=== PATIENT | female | born 1985 | race Caucasian/White ===

== ENCOUNTER 2017-05-10 23:35 | Inpatient (IN) | payer OTHER ==
[~2017-05-10] VITALS: Ht 172.7 cm; Wt 106.1 kg
[2017-05-10 23:39] VITALS: BP 150/74
--- NOTE | 2017-05-10 23:43 | NUR ---
PT RETURNED TO LOBBY
--- NOTE | 2017-05-11 00:08 | NUR ---
32Y F BIB SELF C/O VAGINAL BLEEDING X 6 DAYS. PT STATES PAIN IS LEFT FLANK, RADIATING TO THE BACK. PT STATES SHE THINKS IT IS A KIDNEY INFECTION, BC SHE HAD SIMILIAR SYMPTOMS LAST TIME. PT PROVIDED URINE. PT ALSO C/O N/V/D, BUT NO SOB, CP AT THE MOMEN. PT AAOX4. BREATHING IS UNLABORED AND EVEN. PT AMBULATED TO ER BED 12 WITH STEADY GAIT.
--- NOTE | 2017-05-11 00:54 | NUR ---
Patient being evaluated by physician at bedside.
[2017-05-11] MEDS ORDERED: NACL 0.9% 1,000 ML IV ONE (01:00)
[2017-05-11] MEDS ORDERED: KETOROLAC 30 MG/ML VIAL IVP ONE (01:00)
[2017-05-11 01:12] LABS: BASOPHILS # (AUTO) 0.3 K/uL (0.00-0.22); BASOPHILS % (AUTO) 4.2 % (0.0-2.0); EOSINOPHILS % (AUTO) 0.1 % (0.0-4.0); HEMATOCRIT 32.5 % (36-48); HEMOGLOBIN 11.2 g/dL (12.0-16.0); LYMPHOCYTES % (AUTO) 15.2 % (20.5-51.1); MEAN CORPUSCULAR HEMOGLOBIN 31 pg (27-31); MEAN CORPUSCULAR HGB CONC 35 g/dL (33-37); MEAN CORPUSCULAR VOLUME 89 fL (80-94); MONOCYTES # (AUTO) 0.8 K/uL (0.8-1.0); MONOCYTES % (AUTO) 13.1 % (1.7-9.3); NEUTROPHILS # (AUTO) 4.4 K/uL (1.8-7.7); NEUTROPHILS % (AUTO) 67.4 % (42.2-75.2); PLATELET COUNT (AUTO) 235 K/uL (140-450); RED BLOOD CELL COUNT(AUTO) 3.65 MIL/uL (4.20-5.40); RED CELL DISTRIBUTION WIDTH 12.6 % (11.6-13.7); WHITE BLOOD COUNT (AUTO) 6.5 K/uL (4.8-10.8)
--- NOTE | 2017-05-11 01:12 | NUR ---
PT TAKEN TO CT
[2017-05-11 01:13] LABS: APPEARANCE,URINE SL CLOUDY (CLEAR); BILIRUBIN,URINE 2+ (NEGATIVE); BLOOD, URINE 3+ (NEGATIVE); COLOR,URINE YELLOW (YELLOW); LEUKOCYTE ESTERASE ,URINE TRACE (NEGATIVE); NITRITE, URINE NEGATIVE (NEGATIVE); UGLUCOSE NEGATIVE (NEGATIVE)
[2017-05-11 01:27] LABS: ANION GAP 13.9 (8-16); CARBON DIOXIDE 26.8 mmol/L (21-32)
[2017-05-11 01:28] LABS: TOTAL BILIRUBIN 1.8 mg/dL (0.0-1.0)
--- NOTE | 2017-05-11 01:28 | NUR ---
PT RETURN FROM CT
[2017-05-11 01:34] LABS: POTASSIUM 2.7 mmol/L (3.5-5.1)
[2017-05-11 01:41] LABS: RBC,URINE 3-10 (FEW) /HPF (0-5); WBC,URINE 0-5 (RARE) /HPF (0-5)
--- NOTE | 2017-05-11 03:37 | NUR ---
Ultrasound at bedside.
[2017-05-11] MEDS ORDERED: IBUP-2213 PO (04:00)
[2017-05-11] MEDS ORDERED: LEVO750T2 PO (04:00)
[2017-05-11] MEDS ORDERED: ONDA4ODT1 PO (04:04)
[2017-05-11] MEDS ORDERED: ONDANSETRON 4 MG ODT PO PRN (04:05)
[2017-05-11] MEDS: NACL 0.9% 1,000 ML IV SCH ×2 (04:08→14:08)
[2017-05-11] MEDS ORDERED: MORPHINE SULFATE 2 MG/ML SYR IVP PRN (04:10)
[2017-05-11 04:30] VITALS: BP 139/68
--- NOTE | 2017-05-11 04:30 | NUR ---
Patient's Plan of Care was discussed and reviewed with MISSILE INSPECTOR PREFLIGHT: JENNIFER
--- NOTE | 2017-05-11 04:30 | NUR ---
Admitted from ER TO MED SURGICAL UNIT , with chief complaint of LEFT FLANK PAIN, ABD PAIN, VOMITING, DIARRHEA , 32 y/o ,Female, Cooperative, AWAKE, A/OX4. RESPIRATION EVEN AND UNLABORED. IV SALINE LOCK AT THE RIGHT AC G22, PATENT AND INTACT. ABDOMEN SOFT, NON-TENDER WITH POSITIVE BOWEL SOUNDS ON ALL QUADRANTS. HEAD TO TOE ASSESSMENT DONE WITH CHARGE NURSE BERYL, SKIN INTACT. PLAN OF CARE FOR THE SHIFT DISCUSSED. VERBALIZED UNDERSTANDING. PAIN IN THE ABDOMEN 04/13, WAS MEDICATED IN ER. WILL MONITOR PAIN AND MEDICATE ORDERED. NPO. oriented to call light, bed, phone,television, bathroom, smoking policy,visiting hours, procedures, ID bracelet on. Belongings list checked.
--- NOTE | 2017-05-11 04:36 | NUR ---
Patient will be admitted to care of DR MEDRANO. Admited to MS 111A. Will go to room 111A. Belongings list completed. Report to RAZA.
[2017-05-11] MEDS ORDERED: AMPICILLIN/SULBACTAM 3 GM VIAL ONE (05:04)
[2017-05-11] MEDS: MORPHINE SULFATE 4 MG/ML SYR IVP PRN ×4 (05:37→23:23)
[2017-05-11] MEDS ORDERED: KCL 20 MEQ/WATER INJ PREMIX 100 ML IV ONE (06:00)
[2017-05-11] MEDS ORDERED: KCL 20 MEQ/WATER INJ PREMIX 100 ML IV SCH (06:00)
[2017-05-11] MEDS ORDERED: AMPICILLIN/SULBACTAM 3 GM in NACL 0.9% 100 ML IV SCH (06:00)
[2017-05-11] MEDS: ONDANSETRON 4 MG/2 ML VIAL IVP PRN ×3 (06:08→22:57)
--- NOTE | 2017-05-11 06:08 | NUR ---
VOMITED MODERATE AMOUNT OF YELLOWISH LIQUIDS, MEDICATED WITH ZOFRAN 4 MG. IVP BY JOSE CAMPOS.
[2017-05-11] MEDS ORDERED: INFLUENZA VIRUS VACCINE QUAD 0.5 ML SYR IMVAC PRN (06:20)
--- NOTE | 2017-05-11 06:38 | NUR ---
NO VOMITING NOTED. WILL ENDORSE TO AM NURSE FOR CONTINUITY OF CARE.
--- NOTE | 2017-05-11 07:25 | NUR ---
ENDORSED TO JOSE JAIME FOR CONTINUITY OF CARE. Addendum: 05/11/17 at 0738 by Shayla Antonio LVN CORRECTION: ENDORSE TO JOSE EMANUEL FOR CONTINUITY OF CARE.
--- NOTE | 2017-05-11 07:27 | NUR ---
RECEIVED PATIENT REPORT AT BEDSIDE FROM NIGHT NURSE. PATIENT IS SLEEPING AND EASILY AROUSABLE TO VOICE AND SHOWS NO S/S OF ACUTE DISTRESS ON ROOM AIR. NOTED IV ON THE RT AC WITH IVF'S INFUSING WELL, IV IS PATENT AND INTACT. SKIN INTACT. STATES TOLERABLE ABD PAIN OF 3/10 AND FEELING HOT, GAVE PATIENT ICE BAG FOR COMFORT. PATIENT WAS DISCUSSED POC FOR TODAY, HOSPITAL ENVIRONMENT, CALL LIGHT USE FOR ASSISTANCE. BED IN LOW POSITION WITH CALL LIGHT WITHIN REACH, PATIENT VERBALIZED UNDERSTANDING.
--- NOTE | 2017-05-11 07:35 | NUR ---
RECEIVED CALL FROM DR LESLIE AND UPDATED DR ON PATIENT STATUS, DR LESLIE STATED TO HAVE GI CONSULT, PAGED DR BUCHANAN PLANNING DIVISION SUPERINTENDENT FOR DR MEDRANO. AWAITING CALL BACK
[2017-05-11 08:00] VITALS: BP 124/69
[2017-05-11] MEDS ORDERED: POTASSIUM CHLORIDE 40 MEQ, LIDOCAINE 1% 25 MG in NACL 0.9% 250 ML IV SCH (08:00)
[2017-05-11] MEDS: PANTOPRAZOLE 40 MG INJ VIAL IVP SCH (09:25)
--- NOTE | 2017-05-11 09:36 | NUR ---
ADMINISTERED SCHEDULED MEDICATIONS, IV MEDICATION INFUSING WELL. ALL NEEDS MET AT THIS TIME, BED IN LOW POSITION WITH CALL LIGHT WITHIN REACH.
--- NOTE | 2017-05-11 09:40 | NUR ---
DR MEDRANO CALLED AND STATED TO CALL DR REN TO ARRANGE FOR GI CONSULT. DR REN WAS PAGED WILL AWAIT CALL BACK.
[2017-05-11] MEDS: LEVOFLOXACIN 750 MG/D5W PREMIX 150 ML IV SCH (11:26)
--- NOTE | 2017-05-11 11:35 | NUR ---
PATIENT WAS SEEN BY DR REN, PATIENT WAS IN 10/10 ABD PAIN AND NAUSEAS, PATIENT WAS GIVEN MORPHINE 4 MG IVP AND ZOFRAN 4 MG IVP. WILL REASSESS PAIN IN ONE HR. NEW ORDERS TO GIVE LEVAQUIN 750 MG IVPB WAS GIVEN, IV MEDICATION INFUSING WELL. PATIENT AWARE TO NOTIFY RN WHEN SHE NEEDS TO HAVE A BM TO COLLECT FOR SPECIMEN STOOL CX AND C DIFF. PATIENT VERBALIZED UNDERSTANDING. ALL NEEDS MET AT THIS TIME.
--- NOTE | 2017-05-11 11:55 | NUR ---
PAGED DR REN REGARDING PATIENT TEMPERATURE OF 100.3 FAHRENHEIT. NO PRN MEDICATION FOR ELEVATED TEMPERATURE. APPLIED COOLING MEASURES FOR PATIENT. AWAITING CALL BACK.
[2017-05-11 11:57] VITALS: BP 127/82
--- NOTE | 2017-05-11 12:10 | NUR ---
PATIENT DID NOT TOLERATE LUNCH DIET. REFUSED TO EAT.
--- NOTE | 2017-05-11 12:15 | NUR ---
NURSE FOR NE HIDA SCAN CALLED AND WILL COME BY AT 1930, PATIENT MAY NOT RECEIVE OPIATES AND MUST BE NPO.
--- NOTE | 2017-05-11 12:18 | NUR ---
ASSISTED PATIENT TO RESTROOM, AMB WITH STEADY GAIT.
--- NOTE | 2017-05-11 12:30 | NUR ---
PATIENT HAD A BM, STOOL WAS SOFT AND FORMED, STOOL CX SENT TO LAB.
--- NOTE | 2017-05-11 12:39 | NUR ---
RECEIVED CALL BACK FROM DR REN. DR ORDERED BLOOD CULTURE X 2, 15 MIN APART, TORADOL 30 MG IVP Q6H PRN FOR MODERATE PAIN AND TYLENOL 650 MG Q6H FOR MILD PAIN/ FEVER 100.[address] ORDERS
[2017-05-11] MEDS: metroNIDAZOLE 500 MG/NS PREMIX 100 ML IV SCH ×2 (13:22→20:07)
--- NOTE | 2017-05-11 13:30 | NUR ---
ADMINISTERED SCHEDULED MEDICATIONS, IV ABX INFUSING WELL.
--- NOTE | 2017-05-11 14:26 | NUR ---
CM NOTE INITIAL REVIEW FAXED TO [facility] / FAX# [phone], ATTN: OBED #[phone]
[2017-05-11] MEDS: ACETAMINOPHEN 325 MG TAB PO PRN ×2 (14:38→21:31)
--- NOTE | 2017-05-11 14:44 | NUR ---
PATIENT HEARD CRYING; TAYLOR CHARGE NURSE WENT TO SEE PATIENT AND C/O ABD PAIN HOWEVER PATIENT WAS ALREADY MEDICATED FOR PAIN, PATIENT TEMPERATURE IS ELEVATED AT 101.1 FAHRENHEIT AND WAS GIVEN TYLENOL 650 MG PO. WILL REASSESS TEMPERATURE IN ONE HR. PATIENT WAS ALSO GIVEN COOLING MEASURES. ALL NEEDS MET AT THIS TIME. LIGHTS ARE TURNED OFF, TV OFF, BLINDS CLOSED AND CALL LIGHT WITHIN REACH.
--- NOTE | 2017-05-11 14:57 | NUR ---
05/11/2017 RD INITIAL ASSESSMENT COMPLETED PLEASE REFER TO NUTRITION ASSESSMENT UNDER CARE ACTIVITY FOR ESTIMATED NUTRITIONAL NEEDS. 1.CONTINUE CLEAR LIQUID DIET MEDICALLY NECESSARY. 2.ADVANCE DIET TO REGULAR TEXTURES WHEN MEDICALLY APPROPRIATE. 3.PT TO RECEIVE GENERALLY HEALTHY MEALS TO PROMOTE HEALTHY EATING. RD TO FOLLOW-UP IN 3-5 DAYS PATIENT IS MODERATE RISK. BRISA STORY RD
[2017-05-11] MEDS: KETOROLAC 30 MG/ML VIAL IVP PRN (15:11)
--- NOTE | 2017-05-11 15:15 | NUR ---
PATIENT GIVEN TORADOL 30 MG IVP FOR 6/10 ABD PAIN. WILL REASSESS PAIN IN ONE HR. ALL NEEDS MET AT THIS TIME.
[2017-05-11 16:00] VITALS: BP 126/67
--- NOTE | 2017-05-11 18:31 | NUR ---
NM NURSE STATES CANNOT DUE EXAM BC TORADOL 30 MG IVP GIVEN IS CONSIDERED AN OPIATE. HIDA SCAN CANNOT BE DONE UNTIL TOMORROW EVENING. CHARGE NURSE TAYLOR ZACARIAS, NOTIFYING CHERY REFRIGERATED CARGO CLERK.
--- NOTE | 2017-05-11 19:30 | NUR ---
GAVE PATIENT REPORT AT BEDSIDE TO NIGHT NURSE. PATIENT ENDORSED IN STABLE CONDITION.
--- NOTE | 2017-05-11 19:31 | NUR ---
RECEIVED REPORT FROM DAY SHIFT NURSE. PT IS A/OX4, ON ROOM AIR. 18G IV TO RIGHT AC, INFUSING NS@100ML/HR. PT AMBULATES WITH STEADY GAIT. SKIN INTACT. VITAL SIGNS WNL. UPDATED BOARD. PT IN STABLE CONDITION, NO SIGNS OF DISTRESS NOTED. BED IN LOWEST POSITION, CALL LIGHT WITHIN REACH. WILL CONTINUE TO MONITOR.
--- NOTE | 2017-05-11 21:42 | NUR ---
PT IS IN LOT OF PAIN.CALLED [facility] ([phone]) AND ASKED ABOUT KIND OF PAIN MEDICATION THAT PT CAN TAKE BEFORE HIDA SCAN.SHE SAID ANY KIND OF PAIN MED NOW,BUT DON'T GIVE ANY NARCOTIC 8 HRS BEFORE TEST.IF STILL HAD PAIN CAN GIVE TYLENOL OR MOTRIN DURING 8 HRS.BEFORE TEST.NOTIFY NATALIE GARCIA.
--- NOTE | 2017-05-11 21:55 | NUR ---
CHARGE NURSE SAID SHE TALKED TO PERSON DOING HIDA SCAN AND PAIN MEDICATION CAN BE GIVEN BEFORE 2300. ADMINISTERED 4MG OF MORPHINE FOR 7/10 ABDOMINAL PAIN.
--- NOTE | 2017-05-11 23:00 | NUR ---
PT C/O BEING NAUSEOUS AND VOMITING. ADMINISTERED ZOFRAN PER ORDER. PT TOLERATED WELL.
[2017-05-12] VITALS: BP 115/72
--- NOTE | 2017-05-12 | NUR ---
VITAL SIGNS WITHIN NORMAL LIMITS. PT IN STABLE CONDITION, NO SIGNS OF DISTRESS NOTED. BED IN LOWEST POSITION, CALL LIGHT WITHIN REACH. WILL CONTINUE TO MONITOR.
[2017-05-12] MEDS: NACL 0.9% 1,000 ML IV SCH ×2 (00:49→10:08)
--- NOTE | 2017-05-12 02:00 | NUR ---
PT IN STABLE CONDITION, NO SIGNS OF DISTRESS NOTED. BED IN LOWEST POSITION, CALL LIGHT WITHIN REACH. WILL CONTINUE TO MONITOR.
[2017-05-12] MEDS: ACETAMINOPHEN 325 MG TAB PO PRN ×2 (03:13→15:14)
--- NOTE | 2017-05-12 03:15 | NUR ---
PT CRYING BECAUSE OF PAIN, CAN ONLY GIVE TYLENOL OR MOTRIN BECAUSE OF HIDA SCAN SCHEDULED FOR THIS MORNING, PT REQUESTED TYLENOL. ADMINISTERED TYLENOL, PT TOLERATED WELL. PT IN STABLE CONDITION, NO SIGNS OF DISTRESS NOTED. BED IN LOWEST POSITION, CALL LIGHT WITHIN REACH. WILL CONTINUE TO MONITOR.
[2017-05-12] MEDS: metroNIDAZOLE 500 MG/NS PREMIX 100 ML IV SCH ×3 (05:02→21:08)
[2017-05-12 06:31] LABS: BASOPHILS # (AUTO) 0.1 K/uL (0.00-0.22); BASOPHILS % (AUTO) 1.4 % (0.0-2.0); EOSINOPHILS % (AUTO) 0.2 % (0.0-4.0); HEMATOCRIT 29.9 % (36-48); HEMOGLOBIN 10.3 g/dL (12.0-16.0); LYMPHOCYTES # (AUTO) 1.4 K/uL (2.5-16.5); LYMPHOCYTES % (AUTO) 20.7 % (20.5-51.1); MEAN CORPUSCULAR HEMOGLOBIN 31 pg (27-31); MEAN CORPUSCULAR HGB CONC 35 g/dL (33-37); MEAN CORPUSCULAR VOLUME 88 fL (80-94); MONOCYTES # (AUTO) 0.9 K/uL (0.8-1.0); NEUTROPHILS # (AUTO) 4.1 K/uL (1.8-7.7); NEUTROPHILS % (AUTO) 63.7 % (42.2-75.2); PLATELET COUNT (AUTO) 281 K/uL (140-450); RED BLOOD CELL COUNT(AUTO) 3.38 MIL/uL (4.20-5.40); RED CELL DISTRIBUTION WIDTH 12.3 % (11.6-13.7); WHITE BLOOD COUNT (AUTO) 6.5 K/uL (4.8-10.8)
--- NOTE | 2017-05-12 07:23 | NUR ---
ENDORSED PT TO DAY SHIFT RN IN STABLE CONDITION FOR CONTINUITY OF CARE.
--- NOTE | 2017-05-12 07:25 | NUR ---
RECEIVED PATIENT REPORT AT BEDSIDE FROM NIGHT NURSE. PATIENT IS SLEEPING AND EASILY AROUSABLE TO VOICE AND SHOWS NO S/S OF ACUTE DISTRESS ON ROOM AIR. NOTED IV ON THE RT AC WITH IVF'S INFUSING WELL, IV IS PATENT AND INTACT. SKIN INTACT. PATIENT WAS DISCUSSED POC FOR TODAY, HOSPITAL ENVIRONMENT, CALL LIGHT USE FOR ASSISTANCE. BED IN LOW POSITION WITH CALL LIGHT WITHIN REACH, PATIENT VERBALIZED UNDERSTANDING.
--- NOTE | 2017-05-12 07:30 | NUR ---
PATIENT LEFT OFF UNIT FOR PROCEDURE.
[2017-05-12 07:45] LABS: ANION GAP 12.8 (8-16); CARBON DIOXIDE 23.5 mmol/L (21-32); CREATININE 0.7 mg/dL (0.6-1.3); POTASSIUM 3.3 mmol/L (3.5-5.1)
[2017-05-12 07:46] LABS: ALBUMIN 2.6 g/dL (3.4-5.0); MAGNESIUM 1.9 mg/dL (1.8-2.4); PHOSPHORUS 2.6 mg/dL (2.5-4.9)
--- NOTE | 2017-05-12 08:42 | NUR ---
ADMINISTERED MORPHINE 2 MG IVP FOR NM HIDA SCAN.
[2017-05-12] MEDS: PANTOPRAZOLE 40 MG INJ VIAL IVP SCH (09:00)
[2017-05-12 09:45] VITALS: BP 142/80
[2017-05-12] MEDS: ONDANSETRON 4 MG/2 ML VIAL IVP PRN (10:17)
--- NOTE | 2017-05-12 10:19 | NUR ---
PATIENT BACK ON UNIT. PATIENT C/O NAUSEA AND WAS GIVEN ZOFRAN 4 MG IVP. ALL NEEDS MET AT THIS TIME.
[2017-05-12] MEDS ORDERED: POTASSIUM CHLORIDE 10 MEQ TABER PO SCH (11:05)
[2017-05-12] MEDS ORDERED: PROMETHAZINE 25 MG/ML VIAL IVP PRN (11:10)
[2017-05-12] MEDS: DEXT 5% /NACL 0.9% 1,000 ML IV SCH (11:10)
[2017-05-12] MEDS: LEVOFLOXACIN 750 MG/D5W PREMIX 150 ML IV SCH (11:21)
[2017-05-12] MEDS: KETOROLAC 30 MG/ML VIAL IVP PRN ×3 (11:36→23:21)
--- NOTE | 2017-05-12 11:39 | NUR ---
ADMINISTERED SCHEDULED MEDICATIONS, IV MEDICATION INFUSING WELL. PATIENT C/O 6/10 ABD PAIN AND WAS GIVEN TORADOL 30 MG IVP FOR MODERATE PAIN. WILL REASSESS PAIN ONE HR. ALL NEEDS MET AT THIS TIME, BED IN LOW POSITION WITH CALL LIGHT WITHIN REACH.
--- NOTE | 2017-05-12 13:58 | NUR ---
ADMINISTERED SCHEDULED MEDICATIONS, IV MEDICATION INFUSING WELL. ALL NEEDS MET AT THIS TIME, BED IN LOW POSITION WITH CALL LIGHT WITHIN REACH.
--- NOTE | 2017-05-12 14:20 | NUR ---
SPOKE WITH DR LESLIE REGARDING PATIENTS NM HIDA RESULTS. TO SEE PATIENT.
--- NOTE | 2017-05-12 15:29 | NUR ---
CM NOTE CONCURRENT REVIEW FAXED TO [facility] / FAX# [phone], ATTN: OBED #[phone]
[2017-05-12 16:00] VITALS: BP 119/67
--- NOTE | 2017-05-12 17:42 | NUR ---
PATIENT C/O ABD PAIN 09/11 ADMINISTERED TORADOL 30 MG IVP. WILL REASSES IN ONE HR.
--- NOTE | 2017-05-12 19:33 | NUR ---
GAVE PATIENT REPORT AT BEDSIDE, PATIENT ENDORSED IN STABLE CONDITION.
--- NOTE | 2017-05-12 19:34 | NUR ---
RECEIVED BEDSIDE REPORT FROM DAY SHIFT NURSE ADELFO RN, PT STABLE, NO DISTRESS NOTED, IV TO RAC 18 G RUNNING D5NS @ 75 ML/HR, INFUSING WELL, PT STATED TOLERABLE PAIN AT 4/10, NO SOB, INITIAL ASSESSMENT DONE, ALL SAFETY PRECAUTION MET, WILL CONTINUE TO MONITOR.
--- NOTE | 2017-05-12 19:59 | NUR ---
ENDORSED PLAN OF CARE TO RN KENDALL PT STABLE, NO DISTRESS NOTED, CALL LIGHT WITHIN REACH.
--- NOTE | 2017-05-12 20:00 | NUR ---
RECEIVED PT REPORT FROM ANMOL. JOSE. PT IN STABLE CONDITION. WITH IVF INFUSING WELL ON THE RT AC. KEPT PT NPO . ON CONTACT ISOLATION FOR R/O STOOL CDIFF. AWAITING FOR RESULT . AMBULATORY. WITH C/O ABDOMINAL PAIN. WILL MEDICATE ORDERED. BED ON LOW POSITION. CALL LIGHT PLACED WITHIN EASY REACH. WILL CONTINUE TO MONITOR.
--- NOTE | 2017-05-12 20:13 | NUR ---
TORADOL IVP NOT DUE YET. TALKED TO PT IF OK TO GET MORPHINE FOR MODERATE PAIN ALSO. BUT REFUSED. SHE SAID SHE CAN WAIT FOR THE TORADOL WHEN DUE.
--- NOTE | 2017-05-12 21:15 | NUR ---
PT AWARE OF THE SURGERY TO BE DONE TOMORROW. CONSENT SIGNED BY PT.
--- NOTE | 2017-05-12 23:00 | NUR ---
STOOL FOR C DIFF RESULT NEGATIVE. CONTACT ISOLATION DISCONTINUED.
[2017-05-12] MEDS: LORazepam 2 MG/ML VIAL IVP PRN (23:39)
[2017-05-13] MEDS: DEXT 5% /NACL 0.9% 1,000 ML IV SCH ×3 (00:30→13:50)
--- NOTE | 2017-05-13 00:35 | NUR ---
PT REMINDED ABOUT THE NPO STATUS FOR SURGERY . VERBALIZED UNDERSTANDING.
[2017-05-13 00:51] VITALS: BP 118/72
[2017-05-13] MEDS ORDERED: KETOROLAC 30 MG/ML VIAL IVP PRN (03:30)
[2017-05-13] MEDS ORDERED: KETOROLAC 30 MG/ML VIAL ONE (03:37)
--- NOTE | 2017-05-13 03:44 | NUR ---
SHE WAS IN PAIN AGAIN AND CRYING.STILL NEEDS TO WAIT 2 HRS.UNTIL TIME OF TORADOL.CALLED AND CHANGED FREQUENCY OF TORADOL TO Q4H.ONE DOSE GIVEN.
[2017-05-13] MEDS: metroNIDAZOLE 500 MG/NS PREMIX 100 ML IV SCH ×3 (04:49→21:29)
--- NOTE | 2017-05-13 06:20 | NUR ---
CXR JUST DONE AT BEDSIDE. WILL FOLLOW UP RESULT.
[2017-05-13 06:39] LABS: BASOPHILS % (AUTO) 0.7 % (0.0-2.0); EOSINOPHILS # (AUTO) 0.1 K/uL (0-0.4); EOSINOPHILS % (AUTO) 0.8 % (0.0-4.0); HEMATOCRIT 29.5 % (36-48); HEMOGLOBIN 10.3 g/dL (12.0-16.0); LYMPHOCYTES # (AUTO) 1.5 K/uL (2.5-16.5); LYMPHOCYTES % (AUTO) 23.8 % (20.5-51.1); MEAN CORPUSCULAR HEMOGLOBIN 31 pg (27-31); MEAN CORPUSCULAR HGB CONC 35 g/dL (33-37); MEAN CORPUSCULAR VOLUME 88 fL (80-94); MONOCYTES # (AUTO) 1.1 K/uL (0.8-1.0); MONOCYTES % (AUTO) 17.1 % (1.7-9.3); NEUTROPHILS # (AUTO) 3.7 K/uL (1.8-7.7); NEUTROPHILS % (AUTO) 57.6 % (42.2-75.2); PLATELET COUNT (AUTO) 318 K/uL (140-450); RED BLOOD CELL COUNT(AUTO) 3.33 MIL/uL (4.20-5.40); RED CELL DISTRIBUTION WIDTH 12.8 % (11.6-13.7)
[2017-05-13 07:02] LABS: ANION GAP 13.3 (8-16); CREATININE 0.5 mg/dL (0.6-1.3); PHOSPHORUS 2.9 mg/dL (2.5-4.9); POTASSIUM 3.3 mmol/L (3.5-5.1)
[2017-05-13 07:03] LABS: WHITE BLOOD COUNT (AUTO) 6.4 K/uL (4.8-10.8)
[2017-05-13 07:05] LABS: ALBUMIN 2.6 g/dL (3.4-5.0); BILIRUBIN,DIRECT 0.4 mg/dL (0.0-0.3); TOTAL BILIRUBIN 1.2 mg/dL (0.0-1.0)
--- NOTE | 2017-05-13 07:15 | NUR ---
ENDORSED PT IN STABLE CONDITION TO AM NURSE.
--- NOTE | 2017-05-13 07:16 | NUR ---
RECEIVED REPORT FROM C PYTHON DEVELOPER NURSE. PATIENT LYING IN BED SLEEPING, AROUSABLE BY VOICE. NO DISTRESS NOTED. DENIES ANY PAIN AT THIS TIME. RESPIRATIONS EVEN, UNLABORED, ON ROOM AIR. AAOX4, CALM, DROWSY, SKIN COLOR APPROPRIATE TO ETHNICITY, WARM TO TOUCH. SKIN IS INTACT. LUNGS CTA ON ALL LOBES. ABDOMEN SOFT, NON-DISTENDED. IV SITE INTACT, PATENT, AND INFUSING IVF PER ORDERS. REVIEWED PLAN OF CARE WITH PATIENT. PATIENT VERBALIZED UNDERSTANDING. SAFETY MEASURES IN PLACE, CALL LIGHT WITHIN REACH. WILL CONTINUE TO MONITOR.
[2017-05-13] MEDS ORDERED: MIDAZOLAM 2 MG/2 ML VIAL ONE (07:48)
[2017-05-13] MEDS ORDERED: fentaNYL 0.05 MG/ML VIAL ONE (07:48)
[2017-05-13] MEDS ORDERED: MEPERIDINE 50 MG/ML SYR ONE (07:48)
--- NOTE | 2017-05-13 07:50 | NUR ---
OR NURSES ON UNIT TO TAKE PATIENT DOWN TO OR FOR LAP CHOLECYSTECTOMY. PATIENT AWARE OF PROCEDURE, CONSENTS ALREADY SIGNED. PATIENT TAKEN TO OR VIA GURNEY/BED AT THIS TIME. WILL CONTINUE TO MONITOR WHEN PATIENT RETURNS ON UNIT.
[2017-05-13 08:00] VITALS: BP 128/84
[2017-05-13] MEDS ORDERED: ONDANSETRON 4 MG/2 ML VIAL ONE (08:00)
[2017-05-13] MEDS ORDERED: DEXAMETHASONE 4 MG/ML VIAL ONE (08:00)
[2017-05-13] MEDS ORDERED: PROPOFOL 200 MG/20 ML VIAL IV ONE (08:00)
[2017-05-13] MEDS ORDERED: ROCURONIUM 50 MG/5 ML VIAL IV ONE (08:00)
[2017-05-13] MEDS ORDERED: KETOROLAC 60 MG/2 ML VIAL IM ONE (08:00)
[2017-05-13] MEDS ORDERED: SUCCINYLCHOLINE CHLORIDE 200 MG/10 ML VIAL IVP ONE (08:00)
[2017-05-13] MEDS ORDERED: GLYCOPYRROLATE 0.2 MG/ML VIAL ONE (08:00)
[2017-05-13] MEDS ORDERED: DESFLURANE 240 ML BTL INH ONE (08:00)
[2017-05-13] MEDS ORDERED: NEOSTIGMINE 1:1000 10 MG/10 ML VIAL ONE (08:00)
--- NOTE | 2017-05-13 08:59 | NUR ---
CM NOTE CONCURRENT REVIEW FAXED TO [facility] / FAX# [phone], ATTN: OBED #[phone]
[2017-05-13] MEDS ORDERED: MIDAZOLAM 2 MG/2 ML VIAL IVP ONE (09:00)
[2017-05-13] MEDS ORDERED: MEPERIDINE 25 MG/ML SYR IVP PRN ×2 (09:00)
[2017-05-13] MEDS ORDERED: MEPERIDINE 25 MG/ML SYR ONE (10:04)
[2017-05-13 10:30] VITALS: BP 100/60
--- NOTE | 2017-05-13 10:49 | NUR ---
PATIENT BACK ON MST UNIT FROM PACU. IN STABLE CONDITION. NO DISTRESS NOTED. DENIES ANY PAIN AT THIS TIME. FAMILY MEMBER AT BEDSIDE. PATIENT IS DROWSY AT THIS TIME DUE TO RECOVERING FROM ANESTHESIA. V/S STABLE. RESPIRATIONS EVEN, UNLABORED, ON ROOM AIR. HAS 4 NEW WOUNDS ON ABDOMEN WITH BANDAGES ON THEM S/P LAP CHOLECYSTECTOMY. BANDAGES ARE DRY AND INTACT, NOT TO REMOVE PER DR. LESLIE ORDERS. CONNECTED PATIENT BACK UP TO IVF PER ORDERS. LUNGS CTA ON ALL LOBES. SAFETY MEASURES IN PLACE, CALL LIGHT WITHIN REACH. WILL CONTINUE TO MONITOR.
[2017-05-13 11:00] VITALS: BP 98/60
[2017-05-13] MEDS ORDERED: BUPIVACAINE-MPF 0.25% 30 ML VIAL INJ ONE (11:04)
[2017-05-13] MEDS: PANTOPRAZOLE 40 MG INJ VIAL IVP SCH (11:15)
[2017-05-13] MEDS: LEVOFLOXACIN 750 MG/D5W PREMIX 150 ML IV SCH (11:15)
[2017-05-13] MEDS ORDERED: HYDROcodone/APAP 5/325 MG 1 TAB TAB PO PRN (11:25)
--- NOTE | 2017-05-13 11:36 | NUR ---
PATIENT LYING IN BED SLEEPING, AROUSABLE BY VOICE. DROWSY. PAIN WITHIN TOLERABLE AT THIS TIME. SCHEDULED MEDICATIONS DUE GIVEN. SAFETY MEASURES IN PLACE, CALL LIGHT WITHIN REACH. WILL CONTINUE TO MONITOR.
[2017-05-13 12:00] VITALS: BP 112/66
[2017-05-13] MEDS ORDERED: POTASSIUM CHLORIDE 10 MEQ TABER PO SCH (12:00)
--- NOTE | 2017-05-13 12:50 | NUR ---
PATIENT LYING IN BED SLEEPING, AROUSABLE BY VOICE. NO DISTRESS NOTED. PAIN WITHIN TOLERABLE AT THIS TIME. SCHEDULED MEDICATIONS DUE GIVEN. SAFETY MEASURES IN PLACE, CALL LIGHT WITHIN REACH. WILL CONTINUE TO MONITOR.
--- NOTE | 2017-05-13 12:59 | NUR ---
05/13/17 RD FOLLOW UP COMPLETED. PLEASE REFER TO NUTRITION ASSESSMENT UNDER CARE ACTIVITY FOR ESTIMATED NUTRITIONAL NEEDS. CONTINUE CLEAR LIQUID DIET MEDICALLY NECESSARY. ADVANCE DIET TO REGULAR TEXTURES WHEN MEDICALLY APPROPRIATE. PT TO RECEIVE GENERALLY HEALTHY MEALS TO PROMOTE HEALTHY EATING. RD TO FOLLOW-UP IN 2-3 DAYS PATIENT IS HIGH RISK. BRISA STORY RD
[2017-05-13] MEDS: MORPHINE SULFATE 4 MG/ML SYR IVP PRN ×2 (13:35→20:11)
--- NOTE | 2017-05-13 13:43 | NUR ---
PATIENT LYING IN BED WITH FAMILY MEMBER AT BEDSIDE. NO DISTRESS NOTED. COMPLAINTS OF 8/10 PAIN ON ABDOMINAL SURGICAL WOUNDS. MEDICATED WITH MORPHINE PER ORDERS. OTHER SCHEDULED MEDICATIONS DUE GIVEN. SAFETY MEASURES PLACE, CALL LIGHT WITHIN REACH. WILL CONTINUE TO MONITOR.
--- NOTE | 2017-05-13 15:47 | NUR ---
PATIENT LYING IN BED SLEEPING, AROUSABLE BY VOICE. PAIN WITHIN TOLERABLE AT THIS TIME. SAFETY MEASURES IN PLACE, CALL LIGHT WITHIN REACH. WILL CONTINUE TO MONITOR.
[2017-05-13 16:00] VITALS: BP 121/80
--- NOTE | 2017-05-13 16:45 | NUR ---
PATIENT ABLE TO AMBULATE TO BATHROOM WITH ASSISTANCE. PATIENT REPORTS HAVING VOIDED BUT NO BM YET. DENIES ANY NAUSEA/VOMITING AFTER SURGERY. PATIENT ATE A LITTLE BIT OF LUNCH CLEAR LIQUID DIET. WILL ENCOURAGE PATIENT TO EAT MORE DURING DINNER TO SEE IF SHE IS ABLE TO TOLERATE THE DIET. SAFETY MEASURES IN PLACE, CALL LIGHT WITHIN REACH. WILL CONTINUE TO MONITOR.
[2017-05-13] MEDS: ACETAMINOPHEN 325 MG TAB PO PRN (18:27)
--- NOTE | 2017-05-13 18:30 | NUR ---
PATIENT COMPLAINTS OF MILD PAIN ON ABDOMEN. MEDICATED WITH TYLENOL. WILL CONTINUE TO MONITOR.
--- NOTE | 2017-05-13 19:20 | NUR ---
GAVE REPORT TO PROVER NURSE FOR CONTINUITY OF CARE. PATIENT IN STABLE CONDITION.
--- NOTE | 2017-05-13 19:21 | NUR ---
PATIENT REPORT RECEIVED FROM MORNING NURSE AT BEDSIDE. PATIENT IS AWAKE, ALERT AND ORIENTED. NO SIGNS AND SYMPTOMS OF DISTRESS NOTED. PATIENT'S MOTHER IS AT BEDSIDE. IV SITE NOTED ON RIGHT AC, IVF INFUSING WELL. PLAN OF CARE DISCUSSED WITH PATIENT. PATIENT VERBALIZED UNDERSTANDING. BED IN LOWEST POSITION, SIDE RAILS UP AND CALL LIGHT WITHIN REACH. WILL CONTINUE TO MONITOR.
--- NOTE | 2017-05-13 22:00 | NUR ---
ASSISTED PATIENT TO THE RESTROOM. PATIENT VOIDED. NO SIGNS AND SYMPTOMS OF DISTRESS NOTED. NO SOB. BED IN LOWEST POSITION, SIDE RAILS UP AND CALL LIGHT WITHIN REACH. WILL CONTINUE TO MONITOR.
[2017-05-14] VITALS: BP 138/85
--- NOTE | 2017-05-14 | NUR ---
CHECKED ON PATIENT. PATIENT IS IN BED WATCHING TV BUT COMPLAINS OF 8/10 ABDOMINAL PAIN. WILL MEDICATE ORDERED
[2017-05-14] MEDS: MORPHINE SULFATE 4 MG/ML SYR IVP PRN ×6 (00:11→23:16)
[2017-05-14] MEDS: LORazepam 2 MG/ML VIAL IVP PRN ×2 (02:27→11:46)
--- NOTE | 2017-05-14 02:32 | NUR ---
PATIENT COMPLAINED OF FEELING UNCOMFORTABLE IN BED. ASKED HER IF SHE WANTED ME TO HELP HER WITH REPOSITIONING. SHE SAID NO. PATIENT STATED SHE JUST WANTS TO SITS UP IN BED. PATIENT IS CURRENTLY SITTING AT THE SIDE OF HER BED WITH HER HEAD ON A PILLOW ON THE BEDSIDE TABLE. CALL LIGHT WITHIN REACH. WILL CONTINUE TO MONITOR.
[2017-05-14] MEDS: DEXT 5% /NACL 0.9% 1,000 ML IV SCH ×3 (03:10→20:31)
--- NOTE | 2017-05-14 03:40 | NUR ---
ASSISTED PATIENT TO RESTROOM. PATIENT VOIDED. ASSISTED PATIENT BACK TO BED. NO SIGNS AND SYMPTOMS OF DISTRESS NOTED. NO SOB. WILL CONTINUE TO MONITOR.
[2017-05-14] MEDS: metroNIDAZOLE 500 MG/NS PREMIX 100 ML IV SCH (04:08)
--- NOTE | 2017-05-14 05:47 | NUR ---
CHECKED ON PATIENT. PATIENT IS ASLEEP. NO SIGNS AND SYMPTOMS OF DISTRESS NOTED. BREATHING EVEN AND UNLABORED. WILL CONTINUE TO MONITOR.
[2017-05-14 06:08] LABS: BASOPHILS # (AUTO) 0.1 K/uL (0.00-0.22); BASOPHILS % (AUTO) 0.8 % (0.0-2.0); EOSINOPHILS % (AUTO) 0.3 % (0.0-4.0); HEMATOCRIT 29.2 % (36-48); HEMOGLOBIN 9.7 g/dL (12.0-16.0); LYMPHOCYTES # (AUTO) 1.9 K/uL (2.5-16.5); MEAN CORPUSCULAR HEMOGLOBIN 30 pg (27-31); MEAN CORPUSCULAR HGB CONC 33 g/dL (33-37); MEAN CORPUSCULAR VOLUME 90 fL (80-94); MONOCYTES # (AUTO) 1.1 K/uL (0.8-1.0); MONOCYTES % (AUTO) 13.2 % (1.7-9.3); NEUTROPHILS # (AUTO) 5.4 K/uL (1.8-7.7); NEUTROPHILS % (AUTO) 63.7 % (42.2-75.2); PLATELET COUNT (AUTO) 384 K/uL (140-450); RED BLOOD CELL COUNT(AUTO) 3.25 MIL/uL (4.20-5.40); RED CELL DISTRIBUTION WIDTH 12.5 % (11.6-13.7); WHITE BLOOD COUNT (AUTO) 8.5 K/uL (4.8-10.8)
[2017-05-14 06:32] LABS: MAGNESIUM 1.9 mg/dL (1.8-2.4); PHOSPHORUS 3.1 mg/dL (2.5-4.9)
--- NOTE | 2017-05-14 07:03 | NUR ---
PATIENT REPORT GIVEN TO MORNING NURSE AT BEDSIDE. PATIENT IS IN STABLE CONDITION.
--- NOTE | 2017-05-14 07:04 | NUR ---
RECEIVED REPORT FROM WORLD GEOGRAPHY TEACHER NURSE. PATIENT LYING IN BED SLEEPING, AROUSABLE BY VOICE. NO DISTRESS NOTED. PAIN WITHIN TOLERABLE AT THIS TIME. RESPIRATIONS EVEN, UNLABORED, ON ROOM AIR. AAOX4, CALM, COOPERATIVE, DROWSY, SKIN COLOR APPROPRIATE TO ETHNICITY, WARM TO TOUCH. HAS 4 ABDOMINAL WOUNDS S/P LAP CHOLECYSTECTOMY. LUNGS CTA ON ALL LOBES. ABDOMEN SOFT, NON-DISTENDED, TENDER FROM SURGERY. IV SITE INTACT, PATENT, AND INFUSING IVF PER ORDERS. REPORT HAVING VOIDED LAST NIGHT, BUT NO BOWEL MOVEMENT YET. REPORTS EATING A LITTLE BIT OF DINNER WITH NO NAUSEA/VOMITING. REVIEWED PLAN OF CARE WITH PATIENT. PATIENT VERBALIZED UNDERSTANDING. SAFETY MEASURES IN PLACE, CALL LIGHT WITHIN REACH. WILL CONTINUE TO MONITOR.
[2017-05-14 08:00] VITALS: BP 129/81
[2017-05-14] MEDS: PANTOPRAZOLE 40 MG INJ VIAL IVP SCH (08:27)
--- NOTE | 2017-05-14 08:37 | NUR ---
PATIENT LYING IN BED. PATIENT COMPLAINS OF 8/10 ABDOMINAL PAIN S/P LAP CHOLECTYSTECTOMY. MORPHINE GIVEN PER ORDERS. OTHER SCHEDULED MEDICATIONS DUE GIVEN. SAFETY MEASURES IN PLACE, CALL LIGHT WITHIN REACH. WILL CONTINUE TO MONITOR.
[2017-05-14 10:05] LABS: ANION GAP 12.5 (8-16); CARBON DIOXIDE 24.9 mmol/L (21-32); CREATININE 0.6 mg/dL (0.6-1.3); POTASSIUM 3.4 mmol/L (3.5-5.1)
[2017-05-14 10:10] LABS: ALBUMIN 2.4 g/dL (3.4-5.0); BILIRUBIN,DIRECT 0.3 mg/dL (0.0-0.3); TOTAL BILIRUBIN 0.8 mg/dL (0.0-1.0)
--- NOTE | 2017-05-14 10:30 | NUR ---
PATIENT LYING IN BED SLEEPING. NO DISTRESS NOTED. DENIES ANY PAIN AT THIS TIME. CONDITION UNCHANGED. SAFETY MEASURES IN PLACE, CALL LIGHT WITHIN REACH. WILL CONTINUE TO MONITOR.
[2017-05-14] MEDS: LEVOFLOXACIN 750 MG/D5W PREMIX 150 ML IV SCH (11:12)
[2017-05-14] MEDS: ONDANSETRON 4 MG/2 ML VIAL IVP PRN (11:46)
[2017-05-14] MEDS: SENNA 8.6 MG TAB PO SCH ×2 (12:50→16:56)
--- NOTE | 2017-05-14 13:08 | NUR ---
PATIENT COMPLAINS OF 7/10 LOW BACK PAIN. MEDICATED WITH MORPHINE PER ORDERS. OTHER SCHEDULED MEDICATIONS DUE GIVEN. SAFETY MEASURES IN PLACE, CALL LIGHT WITHIN REACH. ENCOURAGED PATIENT TO AMBULATE TOLERATED. WILL CONTINUE TO MONITOR.
[2017-05-14] MEDS ORDERED: POTASSIUM CHLORIDE 10 MEQ TABER PO SCH (14:50)
--- NOTE | 2017-05-14 14:59 | NUR ---
PATIENT LYING IN BED SLEEPING, AROUSABLE BY VOICE. NO DISTRESS NOTED. PAIN WITHIN TOLERABLE AT THIS TIME. WILL CONTINUE TO MONITOR.
[2017-05-14 15:08] LABS: HEPATITIS A ANTIBODY IGM Negative (Negative); HEPATITIS B CORE AB TOTAL Negative (Negative); HEPATITIS B SURFACE ANTIBODY Non Reactive (.); HEPATITIS B SURFACE ANTIGEN Negative (Negative)
[2017-05-14 16:00] VITALS: BP 138/90
--- NOTE | 2017-05-14 16:58 | NUR ---
PATIENT LYING IN BED WATCHING TV. COMPLAINTS OF TROUBLE PASSING GAS. EDUCATED PATIENT TO AMBULATE TO HELP PASS GAS. PATIENT VERBALIZED UNDERSTANDING, BUT COMPLAINTS OF LOW BACK PAIN. WILL CONTINUE TO ENCOURAGE PATIENT TO AMBULATE. WILL MEDICATE WITH MORPHINE PER ORDERS. WILL CONTINUE TO MONITOR.
--- NOTE | 2017-05-14 18:38 | NUR ---
PATIENT LYING IN BED WATCHING TV. NO DISTRESS NOTED. PAIN WITHIN TOLERABLE. SAFETY MEASURES IN PLACE, CALL LIGHT WITHIN REACH. WILL CONTINUE TO MONITOR.
--- NOTE | 2017-05-14 19:20 | NUR ---
GAVE REPORT TO CABLE TELEVISION PROGRAM DIRECTOR NURSE FOR CONTINUITY OF CARE. PATIENT IN STABLE CONDITION.
--- NOTE | 2017-05-14 19:27 | NUR ---
RECEIVED FROM AM RN IN BED AWAKE AND ALERT. ABLE TO VERBALIZE NEEDS WELL . NO SOB. IVF SITE TO RAC INTACT AND NO INFILTRATION. CARE PLANS FOR THE NIGHT DISCUSSED WITH HER A ND CALL LIGHT WITH IN REACH. ENCOURAGED TO CALL FOR ANY HELP SHE MAY NEED. PT. EMOTIONAL AT THIS TIME, CRYING MOST OF TIMES PER AM RN AND REFUSES TO HAVE ANY VISITORS AND STATED SHE WANTS HER DOOR CLOSED AT ALL TIMES. DX. OF ACUTE CHOLECYSTITIS (LAP CHOLECYSTECTOMY DONE) AND FOR ERCP TOMORROW. REMINDED THAT SHE IS NPO MIDNIGHT. INCISION SITE TO ABDOMEN INTACT AND NO BLEEDING.
[2017-05-14] MEDS ORDERED: AMITRIPTYLINE 10 MG TAB PO SCH (21:00)
[2017-05-14 23:19] VITALS: BP 139/86
[2017-05-15 00:30] VITALS: BP 131/77
--- NOTE | 2017-05-15 00:31 | NUR ---
SLEEPING AT THIS TIME. ABLE TO VERBALIZE SIMPLE NEEDS. CALL LIGHT WITH IN REACH. MEDICATED WITH PAIN RELIEVER MORPHINE 4 MG IVP EARLIER RT C/O INCISION SITE PAIN, S/P LAP. CHOLECYSTECTOMY 05/13/17.
--- NOTE | 2017-05-15 03:16 | NUR ---
NO RESTLESSNESS NOTED. SLEEPING. WOKE UP WHEN I WAS CHECKING ON HER IVF SITE. NO COMPLAINTS DONE. SLEPT BACK AFTER I SAID GOOD NIGHT AGAIN.
[2017-05-15 06:27] LABS: BASOPHILS # (AUTO) 0.3 K/uL (0.00-0.22); BASOPHILS % (AUTO) 3.2 % (0.0-2.0); EOSINOPHILS # (AUTO) 0.1 K/uL (0-0.4); EOSINOPHILS % (AUTO) 0.7 % (0.0-4.0); HEMATOCRIT 31.3 % (36-48); HEMOGLOBIN 10.5 g/dL (12.0-16.0); LYMPHOCYTES # (AUTO) 2.3 K/uL (2.5-16.5); MEAN CORPUSCULAR HEMOGLOBIN 30 pg (27-31); MEAN CORPUSCULAR HGB CONC 34 g/dL (33-37); MEAN CORPUSCULAR VOLUME 90 fL (80-94); MONOCYTES # (AUTO) 1.3 K/uL (0.8-1.0); MONOCYTES % (AUTO) 14.8 % (1.7-9.3); NEUTROPHILS # (AUTO) 4.7 K/uL (1.8-7.7); NEUTROPHILS % (AUTO) 55.3 % (42.2-75.2); PLATELET COUNT (AUTO) 456 K/uL (140-450); RED BLOOD CELL COUNT(AUTO) 3.49 MIL/uL (4.20-5.40); RED CELL DISTRIBUTION WIDTH 12.6 % (11.6-13.7); WHITE BLOOD COUNT (AUTO) 8.7 K/uL (4.8-10.8)
[2017-05-15 06:43] LABS: MAGNESIUM 1.8 mg/dL (1.8-2.4); PHOSPHORUS 2.6 mg/dL (2.5-4.9)
--- NOTE | 2017-05-15 06:48 | NUR ---
BEEN NPO SINCE MIDNIGHT ORDERED. REMINDED PT. AT START OF SHIFT AND EVERY TIME I GO AND CHECK ON HER . A/O X 4.
--- NOTE | 2017-05-15 07:30 | NUR ---
RECEIVED FROM INSTITUTIONAL ASSET MANAGER NURSE. PT IS SLEEPING IN BED, EASILY AROUSED BY NAME. ABLE TO VERBALIZE NEEDS. NO S/S OF ACUTE DISTRESS. IV SITE NOTED TO THE R AC, 18G, PATENT, INTACT AND INFUSING WELL. CARE PLANS DISCUSSED WITH PT. PT VERBALIZED UNDERSTANDING. CALL LIGHT WITH IN REACH. 4 INCISIONS SITE COVERED WITH BANDAGES NOTED TO THE ABDOMEN, DRESSING DRY AND INTACT. PT DENIES PAIN TO LIGHT PALPATION AND PAIN ASSOCIATED TO INCISIONS. PT C/O CHRONIC LOWER BACK PAIN 10/11, NONRADIATING, WILL MEDICATE. SAFETY PRECAUTIONS ARE MET. WILL CONTINUE TO MONITOR.
[2017-05-15 08:00] VITALS: BP 124/76
--- NOTE | 2017-05-15 08:10 | NUR ---
DR CORTEZ CALLED TO CANCEL ERCP FOR TODAY AND CHANGED TO TOMORROW. TO CHANGE DIET TO FULL LIQUID.
[2017-05-15] MEDS: PANTOPRAZOLE 40 MG INJ VIAL IVP SCH (08:14)
[2017-05-15] MEDS: MORPHINE SULFATE 4 MG/ML SYR IVP PRN ×3 (08:14→20:24)
--- NOTE | 2017-05-15 08:20 | NUR ---
MADE PT AWARE THAT ERCP PROCEDURE CHANGED TO TOMORROW. PT VERBALIZED UNDERSTANDING. ASKED PT IF SHE WANTS BREAKFAST, PT STATED NO.
[2017-05-15] MEDS: SENNA 8.6 MG TAB PO SCH ×3 (08:46→18:22)
[2017-05-15] MEDS ORDERED: POTASSIUM CHLORIDE 10 MEQ TABER PO SCH (10:00)
[2017-05-15 10:07] LABS: ANION GAP 10.4 (8-16); CARBON DIOXIDE 27.9 mmol/L (21-32); CREATININE 0.7 mg/dL (0.6-1.3); POTASSIUM 3.3 mmol/L (3.5-5.1)
[2017-05-15 10:29] LABS: ALBUMIN 2.6 g/dL (3.4-5.0); BILIRUBIN,DIRECT 0.4 mg/dL (0.0-0.3); TOTAL BILIRUBIN 1.1 mg/dL (0.0-1.0)
[2017-05-15] MEDS: DEXT 5% /NACL 0.9% 1,000 ML IV SCH (10:59)
[2017-05-15] MEDS: LEVOFLOXACIN 750 MG/D5W PREMIX 150 ML IV SCH (12:17)
--- NOTE | 2017-05-15 13:00 | NUR ---
IV ON THE RIGHT AC, 20G, INFILTRATED. IV CATH DC'ED, TIP INTACT. NO BLEEDING NOTED. WARM COMPRESS APPLIED. NEW IV INSERTED ON RIGHT FA, 20 G, 1 ATTEMPT, PT TOLERATED WELL.
--- NOTE | 2017-05-15 13:50 | NUR ---
DR CORTEZ HAS SEEN THE PT. PT AGREES TO HAVE ERCP TOMORROW.
--- NOTE | 2017-05-15 15:50 | NUR ---
PT IS RESTING IN BED. NO S/S OF ACUTE DISTRESS NOTED. PT REQUESTED A PUDDING.
[2017-05-15 16:00] VITALS: BP 119/75
--- NOTE | 2017-05-15 19:30 | NUR ---
ENDORSED PT TO COLLAR BASTER NURSE FOR CONTINUITY OF CARE. PATIENT IN STABLE CONDITION.
--- NOTE | 2017-05-15 19:31 | NUR ---
PATIENT IS CURRENTLY RESTING IN BED DENIES PAIN IVF INFUSING WELL IV SITE PATENT.SIGNIFICANT OTHER AT BEDSIDE WITH HER.ABDOMINAL INCISIONS X4 CURRENTLY DRY AND INTACT HAS BANDAIDS X4 COVERING THE FOUR SURGICAL INCISIONS.NEEDS MET WILL CONTINUE TO MONITOR.
[2017-05-15 20:00] VITALS: BP 132/78
--- NOTE | 2017-05-15 20:00 | NUR ---
Patient's Plan of Care was discussed and reviewed with MARIAMA: PETER
[2017-05-15] MEDS ORDERED: AMITRIPTYLINE 25 MG TAB PO SCH (21:00)
--- NOTE | 2017-05-15 22:18 | NUR ---
PATIENT WAS GIVEN MORE FRESH WATER AND IS AWARE THAT SHE WILL BE NPO AFTER MIDNIGHT MEANS SHE CANNOT DRINK OR EAT AFTER MIDNIGHT AND PATIENT VERBALIZES UNDERSTANDING.IVF INFUSING WELL IV SITE PATENT. PATIENT DENIES PAIN AT THIS TIME.PATIENT IS SITTING IN HER CHAIR WATCHING TV.CALL LIGHT WITHIN REACH.
--- NOTE | 2017-05-15 22:37 | NUR ---
OH,TAYLOR CALLED AND ASKED IF PATIENT IS HAVING ERCP TONIGHT I TOLD HIM THAT PATIENT WILL HAVE ERCP TOMORROW AND SHE WILL BE NPO AFTER MIDNIGHT.I ALSO INFORMED MD ABOUT THE ABDOMINAL DRESSINGS THAT HAVEN'T BEEN CHANGED SAID ITS OK TO CHANGE THE ABDOMINAL DRESSING TONIGHT GAVE ORDER TO CHANGE THE ABDOMINAL DRESSINGS TONIGHT.
--- NOTE | 2017-05-15 23:00 | NUR ---
DRESSING HAS BEEN CHANGED ORDERED BY TAYLOR AYALA AND PICTURES WERE TAKEN OF THE ABDOMINAL INCISIONS X4.THEY ARE CURRENTLY DRY AND INTACT NO REDNESS NO DRAINAGE NO SWELLING NOTED TO INCISION SITES.WILL CONTINUE TO MONITOR.CALL LIGHT WITHIN REACH.
[2017-05-16] VITALS (9 sets, daily range): BP systolic 114–133; BP diastolic 69–85
--- NOTE | 2017-05-16 00:26 | NUR ---
I MADE ROUNDS CHECKED HER VITAL SIGNS I ASKED THE PATIENT IF SHE IS IN PAIN. PATIENT STATES,"NO IM OK RIGHT NOW." I TOLD THE PATIENT TO CALL ME AND LET ME KNOW IF SHE NEEDS OR WANTS PAIN MEDICATION. PATIENT VERBALIZES UNDERSTANDING.
--- NOTE | 2017-05-16 01:27 | NUR ---
PATIENT IS CURRENTLY SLEEPING IN NO DISTRESS.IVF INFUSING WELL IV SITE PATENT.CALL LIGHT WITHIN REACH.
[2017-05-16] MEDS: DEXT 5% /NACL 0.9% 1,000 ML IV SCH ×2 (02:37→22:04)
[2017-05-16] MEDS: MORPHINE SULFATE 4 MG/ML SYR IVP PRN ×2 (04:52→08:43)
[2017-05-16 06:19] LABS: BASOPHILS # (AUTO) 0.2 K/uL (0.00-0.22); BASOPHILS % (AUTO) 1.8 % (0.0-2.0); EOSINOPHILS # (AUTO) 0.1 K/uL (0-0.4); EOSINOPHILS % (AUTO) 0.9 % (0.0-4.0); HEMATOCRIT 32.3 % (36-48); LYMPHOCYTES # (AUTO) 2.2 K/uL (2.5-16.5); LYMPHOCYTES % (AUTO) 21.8 % (20.5-51.1); MEAN CORPUSCULAR HEMOGLOBIN 31 pg (27-31); MEAN CORPUSCULAR HGB CONC 34 g/dL (33-37); MEAN CORPUSCULAR VOLUME 90 fL (80-94); MONOCYTES # (AUTO) 1.3 K/uL (0.8-1.0); MONOCYTES % (AUTO) 12.9 % (1.7-9.3); NEUTROPHILS # (AUTO) 6.2 K/uL (1.8-7.7); NEUTROPHILS % (AUTO) 62.6 % (42.2-75.2); PLATELET COUNT (AUTO) 483 K/uL (140-450); RED BLOOD CELL COUNT(AUTO) 3.58 MIL/uL (4.20-5.40)
[2017-05-16 06:55] LABS: ALBUMIN 2.7 g/dL (3.4-5.0); BILIRUBIN,DIRECT 0.3 mg/dL (0.0-0.3); TOTAL BILIRUBIN 1.3 mg/dL (0.0-1.0)
[2017-05-16 07:01] LABS: CARBON DIOXIDE 27.4 mmol/L (21-32); CREATININE 0.7 mg/dL (0.6-1.3); POTASSIUM 3.4 mmol/L (3.5-5.1)
--- NOTE | 2017-05-16 07:02 | NUR ---
PATIENT IS CURRENTLY RESTING IN BED IVF INFUSING WELL NEEDS MET. CALL LIGHT WITHIN REACH WILL CONTINUE TO MONITOR.
[2017-05-16 07:11] LABS: MAGNESIUM 1.8 mg/dL (1.8-2.4); PHOSPHORUS 3.5 mg/dL (2.5-4.9)
--- NOTE | 2017-05-16 07:36 | NUR ---
PATIENT CURRENTLY STABLE REPORT ENDORSED TO JOSE LEDEZMA. Addendum: 05/16/17 at 0738 by Trish Blancas LVN REPORT ENDORSED TO JOSE DEL TORO. SHE WILL RESUME CARE OF THE PATIENT.
--- NOTE | 2017-05-16 07:37 | NUR ---
RECEIVED REPORT FROM THE ORGAN TEACHER NURSE. PT IS AWAKE AND SOME WHAT ORIENTED. JUST SLEEPY. INTRODUCED MYSELF AND UPDATED THE BOARD. V/S WITHIN NORMAL RANGE. COMPLAINS OF PAIN. WILL CHECK TO SEE WHEN LAST MED WAS GIVEN. IV ON L FA 20G D5NS AT 75ML/HR. LBM: 05/15. SKIN- 4 INCISIONS COVERED WITH ISLAND DRESSINGS. S/P LAP GRAZYNA ON 05/13. PER ORGAN TEACHER NURSE, DRESSINGS WERE CHANGED LAST NIGHT. PT HAS ERCP TODAY. PT IS NPO AND ALL PRE-OP CHECK DONE PER ORGAN TEACHER NURSE INCLUDING TICKET TO RIDE. WILL CONTINUE TO MONITOR PT.
[2017-05-16] MEDS: PANTOPRAZOLE 40 MG INJ VIAL IVP SCH (08:42)
[2017-05-16] MEDS: SENNA 8.6 MG TAB PO SCH ×3 (08:43→16:10)
--- NOTE | 2017-05-16 08:49 | NUR ---
ADMINISTERED MORNING MEDS. PT REFUSED SENNA. SHE HAD BM YESTERDAY. ADMINISTERED PAIN MED. 10/11. TOLERATED WELL. SLEEPING NOW. WILL CONTINUE TO MONITOR PT. Addendum: 05/16/17 at 1037 by Nina German RN PT REFUSED ROOM TO BE CLEANED. PER PT, "TOO LOUD AND THEY LEAVE THE DOOR OPEN. I DON'T WANT THEM IN MY ROOM."
--- NOTE | 2017-05-16 09:29 | NUR ---
DR. SOLITARIO IS HER TO SEE PT.
--- NOTE | 2017-05-16 09:46 | NUR ---
OR NURSES HERE TO TAKE PT FOR PROCEDURE.
--- NOTE | 2017-05-16 10:11 | NUR ---
CM NOTE CONCURRENT REVIEW FAXED TO [facility] / FAX# [phone], ATTN: [facility] #[phone]
[2017-05-16] MEDS ORDERED: ONDANSETRON 4 MG/2 ML VIAL IVP PRN (10:30)
[2017-05-16] MEDS: HYDROmorphone 1 MG/ML AMP IVP PRN ×2 (11:20→11:30)
[2017-05-16] MEDS ORDERED: HYDROmorphone PFS 2 MG/ML SYR ONE (11:22)
--- NOTE | 2017-05-16 11:45 | NUR ---
PT ARRIVED BACK ON THE UNIT S/P ERCP. PER O/R NURSE, NO GALLSTONES. SHE DID HAVE A SPHINCTEROTOMY. PT V/S WITHIN NORMAL RANGE. WILL CONTINUE TO MONITOR PT.
--- NOTE | 2017-05-16 13:04 | NUR ---
PT JUST SLEEPING. NO SIGNS OF DISTRESS. V/S STABLE. WILL CONTINUE TO MONITOR PT.
--- NOTE | 2017-05-16 14:55 | NUR ---
PT REQUESTED PAIN MED. 09/11. PT TOLERATED WELL. PT WENT BACK TO SLEEP.
--- NOTE | 2017-05-16 16:20 | NUR ---
05/16/17 RD FOLLOW UP COMPLETED. PLEASE REFER TO NUTRITION ASSESSMENT UNDER CARE ACTIVITY FOR ESTIMATED NUTRITIONAL NEEDS. 1.CONTINUE NPO STATUS MEDICALLY APPROPRIATE. 2.ADVANCE DIET SOON PATIENT CAN TOLERATE PO INTAKE. 3.PROVIDE GENERALLY HEALTHY MEALS ONCE PT ABLE TO TOLERATE. RD TO FOLLOW-UP IN 2-3 DAYS PATIENT IS HIGH RISK.
[2017-05-16] MEDS ORDERED: MORPHINE SULFATE 2 MG/ML SYR IVP PRN (17:45)
[2017-05-16] MEDS: LORazepam 2 MG/ML VIAL IVP PRN (18:27)
--- NOTE | 2017-05-16 18:30 | NUR ---
PT SCREAMING AND CRYING UNCONTROLLABLY D/T PAIN IN HER THROAT AND DOWN THE STOMACH. ADMINISTERED MORPHINE AND ATIVAN. TOLERATED WELL. PT IS FINALLY CALMED DOWN. RESTING COMFORTABLY. WILL CONTINUE TO MONITOR PT.
--- NOTE | 2017-05-16 19:24 | NUR ---
ENDORSED PT TO THE GARBAGE MAN NURSE AT BEDSIDE FOR CONTINUITY OF CARE. PT IS SLEEPING. NO SIGNS OF DISTRESS. IN STABLE CONDITION.
--- NOTE | 2017-05-16 19:25 | NUR ---
RECEIVED REPORT FROM DAY SHIFT NURSE. PT IS A/OX4, ON ROOM AIR. 22G IV TO RIGHT AC, INFUSING D5NS@75ML/HR. PT AMBULATES WITH STEADY GAIT. S/P LAP GRAZYNA WITH 4 ABDOMINAL INCISIONS. VITAL SIGNS WNL. UPDATED BOARD. PT IN STABLE CONDITION, NO SIGNS OF DISTRESS NOTED. BED IN LOWEST POSITION, CALL LIGHT WITHIN REACH. WILL CONTINUE TO MONITOR.
--- NOTE | 2017-05-16 20:30 | NUR ---
PT HAD INCONTINENT EPISODE AND WAS HELPED GET CLEAN BY RICE MILLING SUPERVISOR.
[2017-05-16] MEDS: ACETAMINOPHEN 325 MG TAB PO PRN (22:04)
--- NOTE | 2017-05-16 22:10 | NUR ---
PT C/O MILD PAIN. ADMINISTERED TYLENOL PER ORDER, PT TOLERATED WELL.
--- NOTE | 2017-05-16 22:30 | NUR ---
PT HAD ANOTHER INCONTINENT EPISODE AND WAS HELPED GET CLEAN BY CONTINUOUS MINING OPERATOR AGAIN.
[2017-05-17] VITALS: BP 106/62
--- NOTE | 2017-05-17 | NUR ---
VITAL SIGNS WITHIN NORMAL LIMITS. PT IN STABLE CONDITION, NO SIGNS OF DISTRESS NOTED. BED IN LOWEST POSITION, CALL LIGHT WITHIN REACH. WILL CONTINUE TO MONITOR.
--- NOTE | 2017-05-17 02:00 | NUR ---
PT HAD ANOTHER INCONTINENT EPISODE AND WAS HELPED GET CLEAN BY STAFF PSYCHOLOGIST AGAIN.
[2017-05-17] MEDS: ACETAMINOPHEN 325 MG TAB PO PRN ×2 (04:10→09:02)
--- NOTE | 2017-05-17 04:15 | NUR ---
PT C/O 06/11 ABDOMINAL PAIN. ADMINISTERED TYLENOL INDICATED, PT TOLERATED WELL. PT IN STABLE CONDITION, NO SIGNS OF DISTRESS NOTED. BED IN LOWEST POSITION, CALL LIGHT WITHIN REACH. WILL CONTINUE TO MONITOR.
--- NOTE | 2017-05-17 05:27 | NUR ---
PT HAD ANOTHER INCONTINENT EPISODE AND WAS HELPED GET CLEAN BY BRICK MASON AGAIN.
--- NOTE | 2017-05-17 05:56 | NUR ---
PT IS REFUSING BLOOD DRAW FOR AM LABS, SHE SAID "I JUST DON'T WANT THEM RIGHT NOW." SHE AGREED TO GET BLOOD DRAWN AT A LATER TIME.
--- NOTE | 2017-05-17 07:15 | NUR ---
ENDORSED PT IN STABLE CONDITION TO DAY SHIFT NURSE FOR CONTINUITY OF CARE.
--- NOTE | 2017-05-17 07:16 | NUR ---
PT IS ASLEEP. RECEIVED REPORT FROM THE MEDICATION ASSISTANT NURSE AT BEDSIDE. WILL COME BACK AND ASSESS PT. PER MEDICATION ASSISTANT NURSE PT IS INCONTINENT. HAD 4 INCIDENTS. WILL FOLLOW UP.
[2017-05-17 08:00] VITALS: BP 111/73
--- NOTE | 2017-05-17 08:07 | NUR ---
PT EASILY AROUSABLE. PT CLAIMS SHE SLEPT WELL. NO MUCH DISCOMFORT. ASKED PT ABOUT HER INCONTINENT EPISODE, SHE STATED NO ONE CAME TO HELP HER. REASSURED PT THAT WE WILL COME RUNNING WHEN SHE NEEDS ASSISTANCE. POSSIBLE DISCHARGE TODAY. WILL CONTINUE TO MONITOR PT.
--- NOTE | 2017-05-17 08:24 | NUR ---
CM NOTE CONCURRENT REVIEW FAXED TO [facility] / FAX# [phone], ATTN: [facility] #[phone]
[2017-05-17] MEDS: SENNA 8.6 MG TAB PO SCH (09:00)
--- NOTE | 2017-05-17 09:04 | NUR ---
ADMINISTERED MORNING MED. TYLENOL FOR MILD PAIN. PT TOLERATED WELL.
[2017-05-17] MEDS ORDERED: ACET-9525 PO (09:25)
[2017-05-17] MEDS ORDERED: HYDROcodone/APAP 5/325 MG 1 TAB TAB PO PRN (09:25)
--- NOTE | 2017-05-17 11:44 | NUR ---
ASSISTED PT TO THE BATHROOM. ONCE RETURNED, WOUND CARE DONE. REMOVED OLD DRESSING. CLEANSED AREA W/ NS, PATTED DRY. LEFT IT AILEEN. EDUCATED PT RE WOUND CARE AND HOW TO SHOWER W/ WOUND. PT VERBALIZED UNDERSTANDING. PT TOLERATED WELL. WILL CONTINUE TO MONITOR PT.
--- NOTE | 2017-05-17 13:30 | NUR ---
DISCHARGE INSTRUCTIONS GIVEN TO PT. VERBALIZED UNDERSTANDING. REMOVED IV, CANNULA INTACT. NO BLEEDING NOTED. REMOVED ID BANDS. PT WILL GET DRESSED AND GATHER HER BELONGINGS. WILL LET US KNOW ONCE HER RIDE IS HERE. WE WILL GET WHEELCHAIR READY.
--- NOTE | 2017-05-17 13:40 | NUR ---
WHEELED PT OUT TO THE FRONT BY RN. PERSONAL BELONGINGS WITH PT. PT'S RIDE IS WAITING OUTSIDE. PT IN STABLE CONDITION.
--- NOTE | 2017-05-17 14:41 | NUR ---
CM [facility] PH[facility] [phone] TO INFORM HER PATIENT DISCHARGED TO HOME TODAY
== END 2017-05-17 13:40 | disposition home or self-care (01) | DRG 419 ==
LOC: MED 23:35 → MTU 05-11 04:13
PROVIDERS: ADMIT Hospitalist; ATTEND Internal Medicine Pulmonary Disease
PROC: BF101ZZ Fluoroscopy of Bile Ducts using Low Osmolar Contrast (ICD-10-PCS; 2017-05-13)
PROC: 0FT44ZZ Resection of Gallbladder, Percutaneous Endoscopic Approach (ICD-10-PCS; principal; 2017-05-13 13:40)
PROC: 0F798ZZ Dilation of Common Bile Duct, Via Natural or Artificial Opening Endoscopic (ICD-10-PCS; 2017-05-16)
DX: K80.46 Calculus of bile duct with acute and chronic cholecystitis without obstruction (principal); E66.01 Morbid (severe) obesity due to excess calories; E86.9 Volume depletion, unspecified; K52.9 Noninfective gastroenteritis and colitis, unspecified; I10 Essential (primary) hypertension; R79.89 Other specified abnormal findings of blood chemistry; Z68.35 Body mass index [BMI] 35.0-35.9, adult
CPT/HCPCS: 36415; 71045; 76705; 78445; 80048; 80053; 80076; 81001; 82374; 83036; 83690; 83735; 84100; 85025; 85610; 85730; 86704; 86706; 86708; 86709; 86803; 86886; 86900; 86901; 87040; 87045; 87070; 87081; 87340; 96361; 96374; 99285; C1769; C1887; C9113; J0295; J0330; J1100; J1170; J1885; J1956; J2001; J2060; J2175; J2250; J2270; J2405; J2704; J2710; J3010; J3480; J3490; J7030; J7042; Q0092; Q9965

== ENCOUNTER 2021-11-26 18:44 | Emergency (ER) | payer SELFPAY ==
[~2021-11-26] VITALS: Ht 170.2 cm; Wt 113.9 kg
[~2021-11-26 18:44] MED LIST: ACET-9525 PO; IBUP-2213 PO; ONDA-188 PO
[2021-11-26 18:49] VITALS: BP 150/98
[2021-11-26 19:20] VITALS: BP 150/98
== END 2021-11-26 20:40 | disposition home or self-care (01) ==
LOC: MED 18:44
DX: Z00.00 Encounter for general adult medical examination without abnormal findings (principal); Z20.822 Contact with and (suspected) exposure to COVID-19; I10 Essential (primary) hypertension; Z79.891 Long term (current) use of opiate analgesic; Z79.899 Other long term (current) drug therapy; Z79.1 Long term (current) use of non-steroidal anti-inflammatories (NSAID)
CPT/HCPCS: 99283